=== PATIENT | female | born 1990 | race Caucasian/White ===

== ENCOUNTER 2019-11-03 22:24 | Emergency (ER) | payer SELFPAY ==
[~2019-11-03] VITALS: Ht 160 cm; Wt 59.0 kg
[2019-11-03] MEDS ORDERED: BUPIVACAINE HCL 0.25% 10ML MPF VIAL INJ ONE ×2 (22:45→22:58)
[2019-11-03] MEDS ORDERED: BACITRACIN ZINC 0.9GM TP ONE (23:00)
== END 2019-11-03 23:42 | disposition home or self-care (01) ==
LOC: ER 22:24
DX: S61.212A Laceration without foreign body of right middle finger without damage to nail, initial encounter (principal); W26.0XXA Contact with knife, initial encounter; Y92.008 Other place in unspecified non-institutional (private) residence as the place of occurrence of the external cause
CPT/HCPCS: 99283